=== PATIENT | female | born 1955 | race Caucasian/White ===

== ENCOUNTER → 2020-01-16 | Outpatient (CLI) | payer OTHER ==
[~2020-01-16] MED LIST: ACYCLOVIR 400400 MG PO; CALCIUM500 M1 PO; CRESTOR10 MG PO; CRESTOR40 MG PO; CYMBALTA60 MG PO; FLEXERIL PO; HYDROCODONE-AP1 EAC6 PO; IBUPROFEN 600600 M1 PO; LAMICTAL100 MG PO; LEVOTHYROXIN0.075 MG PO; MACROBID 100 M100 M2 PO; MIRAPEX1 MG PO; NEURONTIN 300300 M1 PO; OLANZAPINE20 MG PO; RISPERDAL 1 MG T1 MG PO; SENEXON-S TABL1 EACH PO; SERTRALINE HCL50 MG PO; SONATA10 MG PO; SYNTHROID175 MCG PO; TORADOL 10 MG T10 MG PO; TRAZODONE 150150 M1 PO; VALIUM5 MG PO; WELLBUTRIN SR150 MG PO; XANAX1 MG PO; XARELTO15 MG PO; XARELTO20 MG PO; ZYPREXA 10 MG T10 MG PO
== END ==
LOC: PET 12:48
PROVIDERS: ATTEND Family Medicine
DX: M89.8X3 Other specified disorders of bone, forearm (principal)